=== PATIENT | female | born 1995 | race Caucasian/White ===

== ENCOUNTER 2019-05-24 10:30 | Outpatient (RCR) | payer OTHER, SELFPAY ==
--- NOTE | 2019-04-25 13:45 | PT.OPPOC ---
Current Diagnoses Dizziness and giddiness (04/25/19) Provider Visit Care Team Role Provider Type OSIEL Monk Primary Care Provider Non-Staff Specialty: Family Practice Address: [address] [facility], [place], [address] Fax: Email: David Fuentes MD Attending Provider Physician Specialty: Ear, Nose, Throat Address: [address] [place] [address], [id number] Email: Plan Of Care PT-OP-T Assessment and Plan Start: 04/25/19 14:49 Freq: Status: Active Protocol: Document 04/25/19 13:45 DLM (Rec: 04/25/19 17:22 DLM [id number]) Physical Therapy Assessment Rehab Potential Rehabilitation Potential Good Evaluation Complexity Number of Personal Factors/Comorbidities 1-2 Number of Body Systems Impaired 3 Clinical Presentation at Evaluation Evolving Impairments Impairments Balance Vestibular Goals Two Impairment Decreased balance Short Term Goal (STG) Resolve right drift during balance testing STG Duration 4 weeks Nursing Home Goal (LTG) Resolve losses of balance during functional mobility and normal tasks LTG Duration 10 weeks One Impairment Dizziness Short Term Goal (STG) Resolve dizziness when looking up STG Duration 4 weeks Manager Goal (LTG) Resolve dizziness with normal activities LTG Duration 10 weeks Assessment Summary Assessment Brianne presents with mild dizziness that could only be reproduced during cantor pike testing today with left stronger than right. Unable to see nystagmus during the cantor pike test. On the Dizziness Questionnaire she is positive on 4 out of 5 items that predict BPPV. Noted right drift on high level balance testing. She otherwise shows good balance reactions. Her dizziness has a pattern of being intermittent so will continue to assess each visit for its variability. Clinical testing suggest a mild posterior canal BPPV but the presentation is not classic. Physical Therapy Plan Frequency and Duration Frequency of Treatment 1x/Week Duration of Treatment 10 weeks Plan of Care Start Date 04/25/19 Plan of Care End Date 07/04/19 Therapeutic Interventions Therapeutic Interventions Balance Training Canalithic Repositioning Home Exercise Program Neuromuscular Re-education Patient/Caregiver Education Self-Care/Home Management Vestibular Rehabilitation Next Visit Focus/Plan Next Note Type Treatment Note Next Visit Plan pt not scheduled again until due to being out of town on vacation next week, re-test cantor pike, start balance retraining Plan of Care Dates Plan of Care Start Date 04/25/19 Plan of Care End Date 07/04/19 Please Sign and Return: I have reviewed this Plan of Care and certify that the skilled therapy services above are required to meet the patient?s needs. Physician Signature Date
--- NOTE | 2019-04-25 13:45 | PT.OIE ---
Current Diagnoses Dizziness and giddiness (04/25/19) Past Medical History (Last Updated 04/25/19 @ 14:50 by Maira Mercado, PT) Headache (Acute) Provider Visit Care Team Role Provider Type OSIEL Monk Primary Care Provider Non-Staff Specialty: Family Practice Address: [address] [address], [place], [address] Fax: Email: David Fuentes MD Attending Provider Physician Specialty: Ear, Nose, Throat Address: [address] [place] [address], [id number] Email: Physical Therapy Initial Evaluation PT-OP-A Visit Information Start: 04/25/19 14:49 Freq: Status: Active Protocol: Document 04/25/19 13:45 DLM (Rec: 04/25/19 17:22 DL [id number]) Out-Patient Physical Therapy Visit Information Visit Information Visit Type Initial Evaluation Visit Start Time 13:55 Visit Stop Time 14:40 Total Visit Minutes 45 Visit Number 1 Number of CHEMICAL RESEARCH TECHNICIAN Visits 0 Evaluation Information Evaluation Date 04/25/19 PT-OP-B Current Condition Start: 04/25/19 14:49 Freq: Status: Active Protocol: Document 04/25/19 13:45 DLM (Rec: 04/25/19 17:22 DL [id number]) Current Condition History of Current Condition Onset Date 1.5 years ago Current Complaints dizziness History of Current Condition About 1.5 years ago dizziness started after doing yoga class . She stopped taking the yoga class at that time. She reports intermittent episodes of dizziness since that time. In Aug she noted she was getting dizzy more often. Looking up is the most likely to make her dizzy (worse when standing). She has had a couple of losses of balance with the last one being to the right but did not fall. She gets dizzy during yoga in downward dog so she tries to avoid it. When she gets dizzy she tries to sit down and it will go away. She has difficulty describing the dizziness. It is not a spinning sensation. She feels like she is outside of herself and she feels like she is moving. She has been questioned if she is depressed or dehydrated when she is dizzy and she does not belief this is the case. Her dizziness when provoked resolves quickly with rest breaks. Prior Treatments and Tests ENT testing negative Treatment Goals Patient/Caregiver Goals get rid of the dizziness Prior Functional Status Baseline Function- ADL's Independent Baseline Function- Mobility Independent Baseline Function- Gait Independent Baseline Function- Work/School works at the [employer] on the [employer] Baseline Function- Recreation/Hobbies yoga, rock climbing/bouldering , hiking Baseline Function- Other she reports she is very active Current Functional Impairments (Reported) Functional Limitations- Mobility/Gait losses of balance but no falls Functional Limitations- Recreation/ avoids positions in yoga in Hobbies attempt to avoid dizziness, intermittent dizziness when looking up when rock climbing, sometimes dizzy during sit- ups Personal Factors Other Personal Factors That May Effect gets motion sick easily Therapy/Recovery especially with video games PT-OP-C Subjective Start: 04/25/19 14:49 Freq: Status: Active Protocol: Document 04/25/19 13:45 DLM (Rec: 04/25/19 17:22 DLM [id number]) Patient Questionnaires ABC- Activity Specific Balance Confidence Scale ABC Score 97% ABC Functional Impairment 1 to <20% Impaired (Score 81- 99) Dizziness Handicap Inventory DHI Score 30 DHI Functional Impairment 20 to 39% Impaired (Score 20- 39) OP-PT Pain Assessment Comments Pain Comments no reports of pain PT-OP-D Balance Start: 04/25/19 14:49 Freq: Status: Active Protocol: Document 04/25/19 13:45 DLM (Rec: 04/25/19 17:22 DLM [id number]) Balance Tests Pineda Balance Test Pineda Balance Test Score 56/56 Pineda Impairment Rating 0% Impaired (Score 56) mCTSIB mCTSIB Position 1 independent mCTSIB Position 2 independent mCTSIB Position 3 independent mCTSIB Position 4 independent Romberg Romberg no losses of balance Single Limb Standing Single Limb- Right greater than 30 sec but more sway than left Single Limb- Left greater than 30 sec Tandem Tandem Standing increased sway with right LE post with eyes closed PT-OP-K Range of Motion Start: 04/25/19 14:49 Freq: Status: Active Protocol: Document 04/25/19 13:45 DLM (Rec: 04/25/19 17:22 DLM [id number]) Cervical Spine Range of Motion Cervical Spine Active Percentage Testing Position Sitting Flexion 100 Extension 100 Rotation Left 80 Rotation Right 90 Lateral Flexion Left 100 Lateral Flexion Right 100 Comments no dizziness PT-OP-O Vestibular Start: 04/25/19 14:49 Freq: Status: Active Protocol: Document 04/25/19 13:45 DLM (Rec: 04/25/19 17:22 [facility] [id number]) Vestibular Assessment Screening Tests Vestibular Artery Screen Positive Visual Testing Smooth Pursuits Horizontal negative Smooth Pursuits Vertical negative Saccades Horizontal negative Saccades Vertical negative Spontaneous Nystagmus Negative Vestibulo-Ocular Reflex (VOR1) Negative Vestibulo-Ocular Reflex (VOR2) Negative Positional Testing [place]-Hallpike Positive Left Positive Right < 60 Seconds Rolling Test Negative Left Negative Right Sidelying Test Negative Left Negative Right Supine to Sit Negative Sit to Supine Negative Cervical Vertigo Test Negative Vestibular Function Tests Fukuda Test speed slow down and pt controlling drift to right, no actual turn Comments Vestibular Comments no changes in hearing, no fullness in ears, when standing with eyes closed she describes feeling like she is falling to left (no losses of balance to left observed) PT-OP-Q Treatments Start: 04/25/19 14:49 Freq: Status: Active Protocol: Document 04/25/19 13:45 DLM (Rec: 04/25/19 17:22 [facility] [id number]) Canalithic Repositioning BPPV Treatment Rangel Affected Canal(s) bilateral treated Reps 2 each Comments symptoms stronger on left PT-OP-T Assessment and Plan Start: 04/25/19 14:49 Freq: Status: Active Protocol: Document 04/25/19 13:45 DLM (Rec: 04/25/19 17:22 [facility] [id number]) Physical Therapy Assessment Rehab Potential Rehabilitation Potential Good Evaluation Complexity Number of Personal Factors/Comorbidities 1-2 Number of Body Systems Impaired 3 Clinical Presentation at Evaluation Evolving Impairments Impairments Balance Vestibular Goals Two Impairment Decreased balance Short Term Goal (STG) Resolve right drift during balance testing STG Duration 4 weeks Flame Annealing Machine Operator Goal (LTG) Resolve losses of balance during functional mobility and normal tasks LTG Duration 10 weeks One Impairment Dizziness Short Term Goal (STG) Resolve dizziness when looking up STG Duration 4 weeks Retirement Goal (LTG) Resolve dizziness with normal activities LTG Duration 10 weeks Assessment Summary Assessment Brianne presents with mild dizziness that could only be reproduced during cantor pike testing today with left stronger than right. Unable to see nystagmus during the cantor pike test. On the Dizziness Questionnaire she is positive on 4 out of 5 items that predict BPPV. Noted right drift on high level balance testing. She otherwise shows good balance reactions. Her dizziness has a pattern of being intermittent so will continue to assess each visit for its variability. Clinical testing suggest a mild posterior canal BPPV but the presentation is not classic. Physical Therapy Plan Frequency and Duration Frequency of Treatment 1x/Week Duration of Treatment 10 weeks Plan of Care Start Date 04/25/19 Plan of Care End Date 07/04/19 Therapeutic Interventions Therapeutic Interventions Balance Training Canalithic Repositioning Home Exercise Program Neuromuscular Re-education Patient/Caregiver Education Self-Care/Home Management Vestibular Rehabilitation Next Visit Focus/Plan Next Note Type Treatment Note Next Visit Plan pt not scheduled again until due to being out of town on vacation next week, re-test cantor pike, start balance retraining
--- NOTE | 2019-05-07 14:30 | PT.OTN ---
Current Diagnoses Dizziness and giddiness (05/07/19) Physical Therapy Treatment Note PT-OP-A Visit Information Start: 04/25/19 14:49 Freq: Status: Active Protocol: Document 04/25/19 13:45 DLM (Rec: 04/25/19 17:22 DL [id number]) Out-Patient Physical Therapy Visit Information Visit Information Visit Type Initial Evaluation Visit Start Time 13:55 Visit Stop Time 14:40 Total Visit Minutes 45 Visit Number 1 Number of GASFITTER Visits 0 Evaluation Information Evaluation Date 04/25/19 PT-OP-B Current Condition Start: 04/25/19 14:49 Freq: Status: Active Protocol: Document 04/25/19 13:45 DLM (Rec: 04/25/19 17:22 DL [id number]) Current Condition History of Current Condition Onset Date 1.5 years ago Current Complaints dizziness History of Current Condition About 1.5 years ago dizziness started after doing yoga class . She stopped taking the yoga class at that time. She reports intermittent episodes of dizziness since that time. In Aug she noted she was getting dizzy more often. Looking up is the most likely to make her dizzy (worse when standing). She has had a couple of losses of balance with the last one being to the right but did not fall. She gets dizzy during yoga in downward dog so she tries to avoid it. When she gets dizzy she tries to sit down and it will go away. She has difficulty describing the dizziness. It is not a spinning sensation. She feels like she is outside of herself and she feels like she is moving. She has been questioned if she is depressed or dehydrated when she is dizzy and she does not belief this is the case. Her dizziness when provoked resolves quickly with rest breaks. Prior Treatments and Tests ENT testing negative Treatment Goals Patient/Caregiver Goals get rid of the dizziness Prior Functional Status Baseline Function- ADL's Independent Baseline Function- Mobility Independent Baseline Function- Gait Independent Baseline Function- Work/School works at the [email or web address] on the [employer] Baseline Function- Recreation/Hobbies yoga, rock climbing/bouldering , hiking Baseline Function- Other she reports she is very active Current Functional Impairments (Reported) Functional Limitations- Mobility/Gait losses of balance but no falls Functional Limitations- Recreation/ avoids positions in yoga in Hobbies attempt to avoid dizziness, intermittent dizziness when looking up when rock climbing, sometimes dizzy during sit- ups Personal Factors Other Personal Factors That May Effect gets motion sick easily Therapy/Recovery especially with video games PT-OP-C Subjective Start: 04/25/19 14:49 Freq: Status: Active Protocol: Document 05/07/19 14:30 DLM (Rec: 05/07/19 16:01 DLM [id number]) OP-PT Subjective Patient Comments Patient Comments She just felt a little off after last visit. She notices she gets dizzy when looking up when she stretches in bed in the morning and she got dizzy when going up hill hiking. She got engaged last week and will be traveling to [place] to get soon. Patient Reported Progress Same PT-OP-D Balance Start: 04/25/19 14:49 Freq: Status: Active Protocol: Document 04/25/19 13:45 DLM (Rec: 04/25/19 17:22 DLM [id number]) Balance Tests Pineda Balance Test Pineda Balance Test Score 56/56 Pineda Impairment Rating 0% Impaired (Score 56) mCTSIB mCTSIB Position 1 independent mCTSIB Position 2 independent mCTSIB Position 3 independent mCTSIB Position 4 independent Romberg Romberg no losses of balance Single Limb Standing Single Limb- Right greater than 30 sec but more sway than left Single Limb- Left greater than 30 sec Tandem Tandem Standing increased sway with right LE post with eyes closed PT-OP-K Range of Motion Start: 04/25/19 14:49 Freq: Status: Active Protocol: Document 04/25/19 13:45 DLM (Rec: 04/25/19 17:22 DLM [id number]) Cervical Spine Range of Motion Cervical Spine Active Percentage Testing Position Sitting Flexion 100 Extension 100 Rotation Left 80 Rotation Right 90 Lateral Flexion Left 100 Lateral Flexion Right 100 Comments no dizziness PT-OP-O Vestibular Start: 04/25/19 14:49 Freq: Status: Active Protocol: Document 05/07/19 14:30 DLM (Rec: 05/07/19 16:01 DLM [id number]) Vestibular Assessment Positional Testing [place]-Hallpike Positive Left Positive Right < 60 Seconds Comments Vestibular Comments mild positive Hutton pike's bilaterally with left more symptomatic than right, Able to reproduce her dizziness in bed with looking up then back done (like morning stretch). She does not have symptoms with only looking up but with the motion of up to down in supine. She slower she moves the less symptoms she has. PT-OP-Q Treatments Start: 04/25/19 14:49 Freq: Status: Active Protocol: Document 05/07/19 14:30 DLM (Rec: 05/07/19 16:01 DL [id number]) Manual Therapy Treatment Other Other Manual Treatments palpation of cervical area shows no significant tightness , mild tenderness right side of C2-3, no reproduction of her dizziness Canalithic Repositioning BPPV Treatment Rangel Affected Canal(s) bilateral treated Reps 2 on right and 3 on left Comments fully supported over pillows, decreased intensity and duration of symptoms but did not fully resolve PT-OP-T Assessment and Plan Start: 04/25/19 14:49 Freq: Status: Active Protocol: Document 05/07/19 14:30 DLM (Rec: 05/07/19 16:01 DL [id number]) Physical Therapy Assessment Goals Two Impairment Decreased balance Short Term Goal (STG) Resolve right drift during balance testing STG Duration 4 weeks Longterm Goal (LTG) Resolve losses of balance during functional mobility and normal tasks LTG Duration 10 weeks One Impairment Dizziness Short Term Goal (STG) Resolve dizziness when looking up STG Duration 4 weeks Longterm Goal (LTG) Resolve dizziness with normal activities LTG Duration 10 weeks Assessment Summary Assessment Her dizziness continues to be mild and the worst with looking up. Bilateral hutton pike tests show mild positive. Symptoms decreased with treatment but did not fully resolve. Physical Therapy Plan Frequency and Duration Frequency of Treatment 1x/Week Duration of Treatment 10 weeks Plan of Care Start Date 04/25/19 Plan of Care End Date 07/04/19 Therapeutic Interventions Therapeutic Interventions Balance Training Canalithic Repositioning Home Exercise Program Neuromuscular Re-education Patient/Caregiver Education Self-Care/Home Management Vestibular Rehabilitation Next Visit Focus/Plan Next Note Type Treatment Note Next Visit Plan re-test hutton pike, balance training
--- NOTE | 2019-05-07 14:30 | PT.OTN ---
Current Diagnoses Dizziness and giddiness (05/07/19) Physical Therapy Treatment Note PT-OP-A Visit Information Start: 04/25/19 14:49 Freq: Status: Active Protocol: Document 05/07/19 14:30 DLM (Rec: 05/07/19 16:02 DLM [id number]) Out-Patient Physical Therapy Visit Information Visit Information Visit Type Treatment Note Visit Start Time 14:30 Visit Stop Time 15:20 Total Visit Minutes 50 Visit Number 2 Number of MANNEQUIN MAKER Visits 0 Evaluation Information Evaluation Date 04/25/19 PT-OP-B Current Condition Start: 04/25/19 14:49 Freq: Status: Active Protocol: Document 04/25/19 13:45 DLM (Rec: 04/25/19 17:22 DLM [id number]) Current Condition History of Current Condition Onset Date 1.5 years ago Current Complaints dizziness History of Current Condition About 1.5 years ago dizziness started after doing yoga class . She stopped taking the yoga class at that time. She reports intermittent episodes of dizziness since that time. In Aug she noted she was getting dizzy more often. Looking up is the most likely to make her dizzy (worse when standing). She has had a couple of losses of balance with the last one being to the right but did not fall. She gets dizzy during yoga in downward dog so she tries to avoid it. When she gets dizzy she tries to sit down and it will go away. She has difficulty describing the dizziness. It is not a spinning sensation. She feels like she is outside of herself and she feels like she is moving. She has been questioned if she is depressed or dehydrated when she is dizzy and she does not belief this is the case. Her dizziness when provoked resolves quickly with rest breaks. Prior Treatments and Tests ENT testing negative Treatment Goals Patient/Caregiver Goals get rid of the dizziness Prior Functional Status Baseline Function- ADL's Independent Baseline Function- Mobility Independent Baseline Function- Gait Independent Baseline Function- Work/School works at the [employer] on the [employer] Baseline Function- Recreation/Hobbies yoga, rock climbing/bouldering , hiking Baseline Function- Other she reports she is very active Current Functional Impairments (Reported) Functional Limitations- Mobility/Gait losses of balance but no falls Functional Limitations- Recreation/ avoids positions in yoga in Hobbies attempt to avoid dizziness, intermittent dizziness when looking up when rock climbing, sometimes dizzy during sit- ups Personal Factors Other Personal Factors That May Effect gets motion sick easily Therapy/Recovery especially with video games PT-OP-C Subjective Start: 04/25/19 14:49 Freq: Status: Active Protocol: Document 05/07/19 14:30 DLM (Rec: 05/07/19 16:01 DLM [id number]) OP-PT Subjective Patient Comments Patient Comments She just felt a little off after last visit. She notices she gets dizzy when looking up when she stretches in bed in the morning and she got dizzy when going up hill hiking. She got engaged last week and will be traveling to [place] to get soon. Patient Reported Progress Same PT-OP-D Balance Start: 04/25/19 14:49 Freq: Status: Active Protocol: Document 04/25/19 13:45 DLM (Rec: 04/25/19 17:22 DLM [id number]) Balance Tests Pineda Balance Test Pineda Balance Test Score 56/56 Pineda Impairment Rating 0% Impaired (Score 56) mCTSIB mCTSIB Position 1 independent mCTSIB Position 2 independent mCTSIB Position 3 independent mCTSIB Position 4 independent Romberg Romberg no losses of balance Single Limb Standing Single Limb- Right greater than 30 sec but more sway than left Single Limb- Left greater than 30 sec Tandem Tandem Standing increased sway with right LE post with eyes closed PT-OP-K Range of Motion Start: 04/25/19 14:49 Freq: Status: Active Protocol: Document 04/25/19 13:45 DLM (Rec: 04/25/19 17:22 DLM [id number]) Cervical Spine Range of Motion Cervical Spine Active Percentage Testing Position Sitting Flexion 100 Extension 100 Rotation Left 80 Rotation Right 90 Lateral Flexion Left 100 Lateral Flexion Right 100 Comments no dizziness PT-OP-O Vestibular Start: 04/25/19 14:49 Freq: Status: Active Protocol: Document 05/07/19 14:30 DLM (Rec: 05/07/19 16:01 DLM [id number]) Vestibular Assessment Positional Testing [place]-Hallpike Positive Left Positive Right < 60 Seconds Comments Vestibular Comments mild positive Hutton pike's bilaterally with left more symptomatic than right, Able to reproduce her dizziness in bed with looking up then back done (like morning stretch). She does not have symptoms with only looking up but with the motion of up to down in supine. She slower she moves the less symptoms she has. PT-OP-Q Treatments Start: 04/25/19 14:49 Freq: Status: Active Protocol: Document 05/07/19 14:30 DLM (Rec: 05/07/19 16:01 DL [id number]) Manual Therapy Treatment Other Other Manual Treatments palpation of cervical area shows no significant tightness , mild tenderness right side of C2-3, no reproduction of her dizziness Canalithic Repositioning BPPV Treatment Rangel Affected Canal(s) bilateral treated Reps 2 on right and 3 on left Comments fully supported over pillows, decreased intensity and duration of symptoms but did not fully resolve PT-OP-T Assessment and Plan Start: 04/25/19 14:49 Freq: Status: Active Protocol: Document 05/07/19 14:30 DLM (Rec: 05/07/19 16:01 DL [id number]) Physical Therapy Assessment Goals Two Impairment Decreased balance Short Term Goal (STG) Resolve right drift during balance testing STG Duration 4 weeks Final Finisher Goal (LTG) Resolve losses of balance during functional mobility and normal tasks LTG Duration 10 weeks One Impairment Dizziness Short Term Goal (STG) Resolve dizziness when looking up STG Duration 4 weeks Final Finisher Goal (LTG) Resolve dizziness with normal activities LTG Duration 10 weeks Assessment Summary Assessment Her dizziness continues to be mild and the worst with looking up. Bilateral hutton pike tests show mild positive. Symptoms decreased with treatment but did not fully resolve. Physical Therapy Plan Frequency and Duration Frequency of Treatment 1x/Week Duration of Treatment 10 weeks Plan of Care Start Date 04/25/19 Plan of Care End Date 07/04/19 Therapeutic Interventions Therapeutic Interventions Balance Training Canalithic Repositioning Home Exercise Program Neuromuscular Re-education Patient/Caregiver Education Self-Care/Home Management Vestibular Rehabilitation Next Visit Focus/Plan Next Note Type Treatment Note Next Visit Plan re-test hutton pike, balance training
--- NOTE | 2019-05-24 11:14 | PT.OTN ---
Current Diagnoses Dizziness and giddiness (05/24/19) Physical Therapy Treatment Note PT-OP-A Visit Information Start: 04/25/19 14:49 Freq: Status: Active Protocol: Document 05/24/19 10:30 DCW (Rec: 05/24/19 11:12 DCW [id number]) Out-Patient Physical Therapy Visit Information Visit Information Visit Type Treatment Note Visit Start Time 10:30 Visit Stop Time 11:05 Total Visit Minutes 35 Visit Number 3 Number of E [employer] Visits 0 Evaluation Information Evaluation Date 04/25/19 PT-OP-B Current Condition Start: 04/25/19 14:49 Freq: Status: Active Protocol: Document 04/25/19 13:45 DLM (Rec: 04/25/19 17:22 DLM [id number]) Current Condition History of Current Condition Onset Date 1.5 years ago Current Complaints dizziness History of Current Condition About 1.5 years ago dizziness started after doing yoga class . She stopped taking the yoga class at that time. She reports intermittent episodes of dizziness since that time. In Aug she noted she was getting dizzy more often. Looking up is the most likely to make her dizzy (worse when standing). She has had a couple of losses of balance with the last one being to the right but did not fall. She gets dizzy during yoga in downward dog so she tries to avoid it. When she gets dizzy she tries to sit down and it will go away. She has difficulty describing the dizziness. It is not a spinning sensation. She feels like she is outside of herself and she feels like she is moving. She has been questioned if she is depressed or dehydrated when she is dizzy and she does not belief this is the case. Her dizziness when provoked resolves quickly with rest breaks. Prior Treatments and Tests ENT testing negative Treatment Goals Patient/Caregiver Goals get rid of the dizziness Prior Functional Status Baseline Function- ADL's Independent Baseline Function- Mobility Independent Baseline Function- Gait Independent Baseline Function- Work/School works at the [email or web address] on the [employer] Baseline Function- Recreation/Hobbies yoga, rock climbing/bouldering , hiking Baseline Function- Other she reports she is very active Current Functional Impairments (Reported) Functional Limitations- Mobility/Gait losses of balance but no falls Functional Limitations- Recreation/ avoids positions in yoga in Hobbies attempt to avoid dizziness, intermittent dizziness when looking up when rock climbing, sometimes dizzy during sit- ups Personal Factors Other Personal Factors That May Effect gets motion sick easily Therapy/Recovery especially with video games PT-OP-C Subjective Start: 04/25/19 14:49 Freq: Status: Active Protocol: Document 05/24/19 10:30 DCW (Rec: 05/24/19 11:12 DCW [id number]) OP-PT Subjective Patient Comments Patient Comments Pt reports that she went bouldering yesterday, and didn 't have any symptoms, but still gets symptoms when laying back in bed. PT-OP-D Balance Start: 04/25/19 14:49 Freq: Status: Active Protocol: Document 05/24/19 10:30 DCW (Rec: 05/24/19 11:14 DCW [id number]) Balance Tests CTSIB CTSIB Position 1 Mild Sway CTSIB Position 2 Mild Sway CTSIB Position 3 Mild Sway CTSIB Position 4 Mild Sway CTSIB Position 5 Mild Sway CTSIB Position 6 Mild Sway Single Limb Standing Single Limb- Right 30+ sec Single Limb- Left 30+ sec PT-OP-K Range of Motion Start: 04/25/19 14:49 Freq: Status: Active Protocol: Document 04/25/19 13:45 DLM (Rec: 04/25/19 17:22 DLM [id number]) Cervical Spine Range of Motion Cervical Spine Active Percentage Testing Position Sitting Flexion 100 Extension 100 Rotation Left 80 Rotation Right 90 Lateral Flexion Left 100 Lateral Flexion Right 100 Comments no dizziness PT-OP-O Vestibular Start: 04/25/19 14:49 Freq: Status: Active Protocol: Document 05/24/19 10:30 DCW (Rec: 05/24/19 11:12 DCW [id number]) Vestibular Assessment Visual Testing Gaze Evoked Nystagmus With Fixation Negative Gaze Evoked Nystagmus Without Fixation Negative Heave Test Negative Thrust Head Negative Head Shake Negative Positional Testing Nguyen-Hallpike Positive Left Positive Right < 60 Seconds Rolling Test Negative Left Negative Right Vestibular Function Tests CTSIB Position 1 Mild Sway CTSIB Position 2 Mild Sway CTSIB Position 3 Mild Sway CTSIB Position 4 Mild Sway CTSIB Position 5 Mild Sway CTSIB Position 6 Mild Sway Comments Vestibular Comments No nystagmus with Hallpike, only subjective complaints. PT-OP-Q Treatments Start: 04/25/19 14:49 Freq: Status: Active Protocol: Document 05/24/19 10:30 DCW (Rec: 05/24/19 11:12 DCW [id number]) Gym Equipment Shuttle Balance Red Details Wide MARCO A (EO/EC), SLS, Staggered Stance Canalithic Repositioning BPPV Treatment Rangel Affected Canal(s) Left posterior canal Reps x2 PT-OP-T Assessment and Plan Start: 04/25/19 14:49 Freq: Status: Active Protocol: Document 05/24/19 10:30 DCW (Rec: 05/24/19 11:12 DCW [id number]) Physical Therapy Assessment Goals Two Impairment Decreased balance Short Term Goal (STG) Resolve right drift during balance testing STG Duration 4 weeks Hat Conditioner Goal (LTG) Resolve losses of balance during functional mobility and normal tasks LTG Duration 10 weeks One Impairment Dizziness Short Term Goal (STG) Resolve dizziness when looking up STG Duration 4 weeks Halfway Goal (LTG) Resolve dizziness with normal activities LTG Duration 10 weeks Assessment Summary Assessment Pt symptoms only present during Hallpike, however only subjective complaints, no nystagmus noted even with fixation removed. Pt admits she has had a few episodes recently where she just suddenly loses her balance, even falling over once when she was just standing still. After her balance tests showed no real deficit to explain this fall, would recommend MRI to rule out central causes. Therapist will contact pt's PCP with recommendation. Physical Therapy Plan Frequency and Duration Frequency of Treatment 1x/Week Duration of Treatment 10 weeks Plan of Care Start Date 04/25/19 Plan of Care End Date 07/04/19 Therapeutic Interventions Therapeutic Interventions Balance Training Canalithic Repositioning Home Exercise Program Neuromuscular Re-education Patient/Caregiver Education Self-Care/Home Management Vestibular Rehabilitation Other Referrals/Consults Referrals/Consults Recommended Discuss possible MRI /c pt's PCP Next Visit Focus/Plan Next Note Type Treatment Note Next Visit Plan re-test sakshi orozco balance training
--- NOTE | 2019-11-06 11:50 | PT.OPDS ---
Current Diagnoses Dizziness and giddiness (05/24/19) Visit Care Team Role Provider Type OSIEL Monk Primary Care Provider Non-Staff Specialty: Family Practice Address: [address], [place], [address] Fax: Email: David Fuentes MD Attending Provider Physician Specialty: Ear, Nose, Throat Address: [address] [place] [address], [address] Email: [email or web address] Visit Number Visit Number 3 Discharge Summary PT-OP-B Current Condition Start: 04/25/19 14:49 Freq: Status: Active Protocol: Document 04/25/19 13:45 DLM (Rec: 04/25/19 17:22 DLM [id number]) Current Condition History of Current Condition Onset Date 1.5 years ago Current Complaints dizziness History of Current Condition About 1.5 years ago dizziness started after doing yoga class . She stopped taking the yoga class at that time. She reports intermittent episodes of dizziness since that time. In Aug she noted she was getting dizzy more often. Looking up is the most likely to make her dizzy (worse when standing). She has had a couple of losses of balance with the last one being to the right but did not fall. She gets dizzy during yoga in downward dog so she tries to avoid it. When she gets dizzy she tries to sit down and it will go away. She has difficulty describing the dizziness. It is not a spinning sensation. She feels like she is outside of herself and she feels like she is moving. She has been questioned if she is depressed or dehydrated when she is dizzy and she does not belief this is the case. Her dizziness when provoked resolves quickly with rest breaks. Prior Treatments and Tests ENT testing negative Treatment Goals Patient/Caregiver Goals get rid of the dizziness Prior Functional Status Baseline Function- ADL's Independent Baseline Function- Mobility Independent Baseline Function- Gait Independent Baseline Function- Work/School works at the [employer] on the [employer] Baseline Function- Recreation/Hobbies yoga, rock climbing/bouldering , hiking Baseline Function- Other she reports she is very active Current Functional Impairments (Reported) Functional Limitations- Mobility/Gait losses of balance but no falls Functional Limitations- Recreation/ avoids positions in yoga in Hobbies attempt to avoid dizziness, intermittent dizziness when looking up when rock climbing, sometimes dizzy during sit- ups Personal Factors Other Personal Factors That May Effect gets motion sick easily Therapy/Recovery especially with video games PT-OP-C Subjective Start: 04/25/19 14:49 Freq: Status: Active Protocol: Document 05/24/19 10:30 DCW (Rec: 05/24/19 11:12 DCW [id number]) OP-PT Subjective Patient Comments Patient Comments Pt reports that she went bouldering yesterday, and didn 't have any symptoms, but still gets symptoms when laying back in bed. PT-OP-D Balance Start: 04/25/19 14:49 Freq: Status: Active Protocol: Document 05/24/19 10:30 DCW (Rec: 05/24/19 11:14 DCW [id number]) Balance Tests CTSIB CTSIB Position 1 Mild Sway CTSIB Position 2 Mild Sway CTSIB Position 3 Mild Sway CTSIB Position 4 Mild Sway CTSIB Position 5 Mild Sway CTSIB Position 6 Mild Sway Single Limb Standing Single Limb- Right 30+ sec Single Limb- Left 30+ sec PT-OP-K Range of Motion Start: 04/25/19 14:49 Freq: Status: Active Protocol: Document 04/25/19 13:45 DLM (Rec: 04/25/19 17:22 DLM [id number]) Cervical Spine Range of Motion Cervical Spine Active Percentage Testing Position Sitting Flexion 100 Extension 100 Rotation Left 80 Rotation Right 90 Lateral Flexion Left 100 Lateral Flexion Right 100 Comments no dizziness PT-OP-O Vestibular Start: 04/25/19 14:49 Freq: Status: Active Protocol: Document 05/24/19 10:30 DCW (Rec: 05/24/19 11:12 DCW [id number]) Vestibular Assessment Visual Testing Gaze Evoked Nystagmus With Fixation Negative Gaze Evoked Nystagmus Without Fixation Negative Heave Test Negative Thrust Head Negative Head Shake Negative Positional Testing [place]-Hallpike Positive Left,Positive Right,< 60 Seconds Rolling Test Negative Left,Negative Right Vestibular Function Tests CTSIB Position 1 Mild Sway CTSIB Position 2 Mild Sway CTSIB Position 3 Mild Sway CTSIB Position 4 Mild Sway CTSIB Position 5 Mild Sway CTSIB Position 6 Mild Sway Comments Vestibular Comments No nystagmus with Hallpike, only subjective complaints. PT-OP-T Assessment and Plan Start: 04/25/19 14:49 Freq: Status: Active Protocol: Document 11/06/19 11:48 DCW (Rec: 11/06/19 11:50 DCW [id number]) Physical Therapy Assessment Goals Two Impairment Decreased balance Short Term Goal (STG) Resolve right drift during balance testing STG Duration 4 weeks Shelter Goal (LTG) Resolve losses of balance during functional mobility and normal tasks LTG Duration 10 weeks One Impairment Dizziness Short Term Goal (STG) Resolve dizziness when looking up STG Duration 4 weeks Charging Board Operator Goal (LTG) Resolve dizziness with normal activities LTG Duration 10 weeks Assessment Summary Assessment Pt has not scheduled any follow up visits following her MRI, has not been seen in more than 5 months, will be discharged from skilled therapy at this time. Pt will require a new referral in order to return to skilled therapy in the future. Physical Therapy Plan Frequency and Duration Frequency of Treatment 1x/Week Duration of Treatment 10 weeks Plan of Care Start Date 04/25/19 Plan of Care End Date 07/04/19 Therapeutic Interventions Therapeutic Interventions Balance Training,Canalithic Repositioning,Home Exercise Program,Neuromuscular Re- education,Patient/Caregiver Education,Self-Care/Home Management,Vestibular Rehabilitation Discharge Physical Therapy Discharge Reasons No Longer Attending PT Next Visit Focus/Plan Next Note Type Discharge Summary
== END 2019-11-23 11:47 ==
LOC: PHYS 10:30
PROVIDERS: PCP Nurse Practitioner Family; Visit Provider Otolaryngology
DX: R42 Dizziness and giddiness (principal)
CPT/HCPCS: 97112; 97162

== ENCOUNTER 2019-06-18 18:00 | Emergency (ER) | payer OTHER, SELFPAY ==
[2019-06-18 18:06] VITALS: BP 129/79; PULSE 81; RESP 18; O2SAT 94; BMI 23.9
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
[2019-06-18] MEDS: IBUPROFEN 400 MG TABLET PO (18:30)
[2019-06-18] MEDS: ACETAMINOPHEN 325 MG TABLET 650 MG PO (18:30)
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
[2019-06-18 19:48] VITALS: BP 108/56; PULSE 72; RESP 16; TEMP 36.9; O2SAT 100
== END 2019-06-18 20:01 | disposition home or self-care (01) ==
PROVIDERS: Emergency Provider Nurse Practitioner Family; PCP Nurse Practitioner Family
DX: M54.2 Cervicalgia (principal); S27.321A Contusion of lung, unilateral, initial encounter; V43.52XA Car driver injured in collision with other type car in traffic accident, initial encounter
CPT/HCPCS: 71046; 99283

== ENCOUNTER → 2019-07-23 18:36 | Outpatient (CLI) | payer OTHER, SELFPAY ==
--- NOTE | 2019-07-23 18:40 | DI.MRI.S_ITS ---
PROCEDURE: MR HEAD/BRAIN WO CON INDICATIONS: DIZZINESS TECHNIQUE: Noncontrast axial T1 spin echo, axial T2 fast spin echo, sagittal and axial FLAIR, coronal T2 fast spin echo, axial gradient echo, axial diffusion and ADC through the brain. COMPARISON: None. FINDINGS: Image quality: Excellent. CSF Spaces: Basal cisterns are patent. No extra-axial fluid collections. Ventricles are normal in size and shape. Brain: No intracranial masses or hemorrhage. Lynch/white matter interface is normal. Brainstem appears normal. Diffusion-weighted images demonstrate no acute ischemic insult. No chronic ischemic insults. Normal intravascular flow voids are present. Skull and face: Calvarium has normal marrow signal. Orbits appear normal. Sinuses: Sinuses and mastoids are clear. IMPRESSION: Negative brain MRI. Normal brain parenchyma. No evidence of acute stroke, hemorrhage, or mass. Dictated by: Dk Lee M.D. on 07/23/2019 at 20:56 Approved by: Dk Lee M.D. on 07/23/2019 at 20:58
== END ==
PROVIDERS: PCP Nurse Practitioner Family; Visit Provider Nurse Practitioner Family
DX: R42 Dizziness and giddiness (principal)
CPT/HCPCS: 70551

== ENCOUNTER 2019-12-04 22:49 | Emergency (ER) | payer OTHER, SELFPAY ==
[2019-12-04 22:56] VITALS: BP 122/78; PULSE 69; RESP 16; TEMP 36.4; O2SAT 97
--- NOTE | 2019-12-04 23:05 | ED.URI ---
HPI - URI/Sore Throat General Chief Complaint: Upper Respiratory Symptoms Stated Complaint: states sinus infection Time Seen by Provider: 12/04/19 22:56 Source: patient Mode of arrival: Ambulatory Limitations: no limitations History of Present Illness HPI Narrative: 24-year-old otherwise healthy female here for evaluation of approximately 48 hours of sinus congestion, bilateral ear pain with left being greater than right, no cough. Sore throat. Has not tried anything for symptoms prior to arrival. Related Data Previous Rx's Medication Instructions Recorded cyclobenzaprine 5 mg PO BID PRN #10 tab MDD You 06/18/19 can take upto 2 tabs Allergies Allergy/AdvReac Type Severity Reaction Status Date / Time No Known Drug Allergies Allergy Verified 06/18/19 18:11 Review of Systems Constitutional Constitutional: Denies fever(s) and Denies headache(s) ENT Ears, Nose, Mouth, and Throat: Denies ear discharge, Reports otalgia, Denies headache(s), Denies disequilibrium, Denies tinnitus, Denies sinus pain, Reports sinus pressure and Reports sore throat Cardiovascular Cardiovascular: Denies chest pain and Denies dyspnea Respiratory Respiratory: Denies cough and Denies dyspnea Gastrointestinal Gastrointestinal: Denies abdominal pain and Denies nausea Integumentary/Breasts Skin/Breast: Denies rash Neurologic Neurologic: Denies behavioral changes, Denies headache(s) and Denies disequilibrium Psychiatric Psychiatric: Denies behavioral changes Hematologic/Lymphatic Hematologic/Lymphatic: Denies easy bleeding and Denies easy bruising Patient History Medical History Headache (Acute) Social History Smoking Status: Never smoker Smoking Status: Never smoker alcohol intake frequency: 0-2 drinks per day Substance Use Type: does not use Exam Initial Vital Signs Initial Vital Signs: Vital Signs Temperature 97.6 F 12/04/19 22:56 Pulse Rate 69 12/04/19 22:56 Respiratory Rate 16 12/04/19 22:56 Blood Pressure 122/78 12/04/19 22:56 Pulse Oximetry 97 12/04/19 22:56 Const General: cooperative and comfortable Orientation: alert, awake and oriented x3 HENMT Head: normal to inspection and normocephalic Ears: EAC's normal and TM abnormal bulging bilaterally and dull bilaterally; not erythematous Mouth: oral mucosae normal Throat: posterior oropharynx normal Neck Lymphatic: No lymphadenopathy Resp Effort & Inspection: normal respiratory effort Auscultation: clear to auscultation bilaterally Cardio Rate: regular rate Rhythm: regular rhythm Skin Lesions: no lesions Rashes: no rashes Neuro General: alert and awake Speech: speech normal Extrem General: normal to inspection and capillary refill normal Course Vital Signs Vital signs: Vital Signs - 8 hr 12/04/19 22:56 Temperature 97.6 F Pulse Rate 69 Respiratory Rate 16 Blood Pressure 122/78 Pulse Oximetry 97 MDM - URI/Sore Throat MDM Narrative Medical decision making narrative: Nontoxic appearing. No indication for antibiotics. Has a URI. Discussed the use of [id number] medications. 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 Discussed return precautions and follow-up instructions. She expressed understanding and agreement with plan. Discharge Plan Departure Patient Disposition: Home Clinical Impression: Upper respiratory infection Qualifiers: URI type: unspecified URI Qualified Code(s): J06.9 - Acute upper respiratory infection, unspecified Instructions: DI for Viral Upper Respiratory Infection -- Adult Activity Restrictions/Additional Instructions: Recommend that you use a antihistamine such as Claritin or Angelina or Zyrtec. You can buy these [id number]. Also nasal spray to include either Flonase or Nasonex. Use these medications as directed and like we discussed. You could also purchased Afrin which may be helpful. Contact your medical department for follow-up. Return to the emergency department for any new symptoms Prescriptions: No Action cyclobenzaprine 5 mg tablet 5 mg PO BID MDD You can take upto 2 tabs PRN (Reason: muscle spasm) Qty: 10 RF: 0 Referrals: Aubrie Posada ARNP [Primary Care Provider] - Stand Alone Forms: Work Release Note
== END 2019-12-04 23:13 | disposition home or self-care (01) ==
PROVIDERS: Emergency Provider Emergency Medicine; PCP Nurse Practitioner Family
DX: J06.9 Acute upper respiratory infection, unspecified (principal)
CPT/HCPCS: 99281

== ENCOUNTER 2020-09-07 12:17 | Emergency (ER) | payer OTHER, SELFPAY ==
[2020-09-07] VITALS (12 sets, daily range): BP systolic 108–122; BP diastolic 62–72; PULSE 83–100; RESP 16–18; TEMP 37; O2SAT 95–100; BMI 22.4
--- NOTE | 2020-09-07 12:57 | ED_ITS ---
HPI - General Chief complaint: Urogenital-Female Stated complaint: post miscarriage, cramping every 5 mins, bleeding Time Seen by Provider: 09/07/20 12:35 Source: patient Mode of arrival: Ambulatory Limitations: no limitations History of Present Illness HPI Narrative: This is a 25-year-old female who comes emergency department with complaint of vaginal bleeding status post miscarriage. Patient states she had her 9.5 week appointment they did not see heartbeat, she had a follow-up ultrasound appointment and they could not see heartbeat again and she was told she was miscarrying. She took an oral medication to help evacuate the products from her miscarriage. She took this on Tuesday, she had some cramping quite a bit of bleeding she states the bleeding has tapered until yesterday and then increased a little bit today. She states today she started having pretty severe cramping that was much stronger than during the week. She has not had any fevers. She has had some nausea. She has not had any vomiting. She denies any chest pain. She does feel short of breath starting around . Patient denies any frequency, dysuria urgency. She has had normal bowel movements although she states that today when she had a bowel movement was quite painful in the front her abdomen. She states she is otherwise healthy. She states she has completed the oral medication she thinks it is misoprostol but she is unsure. She follows with OBGYN at the [facility] and believes that Dr. Lang is her physician. She states she had ultrasound and had a Pap smear but did not have any other interventions and did not have a D&C. Patient : Yes Related Data Previous Rx's Medication Instructions Recorded cyclobenzaprine 5 mg PO BID PRN #10 tab MDD You 06/18/19 can take upto 2 tabs hydrocodone-acetaminophen 2 tab PO Q4-6H PRN #10 tab 09/07/20 hydrocodone-acetaminophen 2 tab PO Q4-6H PRN #10 tab 09/07/20 hydrocodone-acetaminophen 2 tab PO Q4-6H PRN #10 tab 09/07/20 misoprostol [Cytotec] See Rx Instructions .ROUTE 09/07/20 .COMPLEX #8 tab Allergies Allergy/AdvReac Type Severity Reaction Status Date / Time No Known Drug Allergies Allergy Verified 06/18/19 18:11 Review of Systems Review of Systems ROS Unobtainable: All systems reviewed & are unremarkable except as noted in HPI and below PMFSH - Past Medical History Medical history: Reports no medical history Surgical history: Reports no surgical history Patient : Yes Exam Narrative Exam Narrative: GENERAL: Alert and oriented x three, well-nourished, well- appearing female in mild distress. During our evaluation she began to have cramping and does look quite uncomfortable during those episodes. HEENT: Head normocephalic, atraumatic, EOMI, pupils reactive, face symmetric, moist mucous membranes NECK: Supple, full range of motion CARDIOVASCULAR: Regular rate and rhythm without murmurs, rubs or gallops. RESPIRATORY: Breath sounds equal bilaterally, no wheezes rales or rhonchi. ABDOMEN: Soft, moderate generalized tenderness lower abdomen, Normoactive bowel sounds all 4 quadrants. No guarding or rebound, rigidity, no mass : No CVA tenderness. EXTREMITIES: Normal range of motion, no clubbing or edema. Neurovascularly intact NEUROLOGICAL: Cranial nerves II through XII grossly intact. Moving all extremities SKIN: Warm, dry, no petechiae, no rashes or lesions. Initial Vital Signs Initial Vital Signs: Vital Signs Pulse Rate 90 09/07/20 12:24 Blood Pressure 122/72 09/07/20 12:24 Pulse Oximetry 100 09/07/20 12:24 Course Orders Ordered: ED Orders 09/07/20 13:06 Urinalysis and Microscopic Stat 09/07/20 13:25 ABO RH Type Stat Complete Blood Count AUTO DIFF Stat Comprehensive Metabolic Panel Stat HCG Quantitative /Beta subunit Stat Partial Thromboplastin Time Stat Prothrombin Time INR Stat 09/07/20 13:43 US pelvic complete Stat Discontinued Medications Ketorolac Tromethamine (Toradol) 30 mg IV NOW ONE Stop: 09/07/20 13:42 Last Admin: 09/07/20 13:47 Dose: 30 mg Documented by: LETI Reevaluation(s) Reevaluation #1: Discussed lab findings and Prelim middle ultrasound findings. Waiting for final report before contacting OBGYN but we will wait for final report. Patient's vitals, labs appropriate the department. She does continue to have some bleeding. Pain is improving with Toradol. Time: 14:05 Reevaluation #2: Recheck, discussed that Dr. De Anda is coming in to see the patient. Time: 15:15 Consultations Consultation #1: Discussed findings and US findings. Dr. De Anda will come in to see the patient. Time: 16:13 Vital Signs Vital signs: Vital Signs - 8 hr 09/07/20 12:24 09/07/20 12:25 09/07/20 12:29 Temperature 98.6 F Pulse Rate 90 90 92 H Respiratory Rate 18 16 Blood Pressure 122/72 122/72 122/72 Pulse Oximetry 100 100 100 09/07/20 12:30 09/07/20 13:10 09/07/20 13:30 Temperature Pulse Rate 86 85 Respiratory Rate Blood Pressure Pulse Oximetry 100 95 97 09/07/20 13:42 09/07/20 13:43 09/07/20 13:53 Temperature Pulse Rate 87 88 83 Respiratory Rate 18 Blood Pressure 118/66 118/66 119/63 Pulse Oximetry 96 96 97 09/07/20 14:00 09/07/20 15:00 09/07/20 15:30 Temperature Pulse Rate 100 H 87 Respiratory Rate 16 Blood Pressure 115/62 118/64 108/68 Pulse Oximetry 96 97 96 MDM - OB/Uterine Contractions Lab Data Attestation: I reviewed the patient's lab results. Result diagrams: 09/07/20 13:25 09/07/20 13:25 Labs: Lab Results 09/07/20 09/07/20 09/07/20 Range/Units 13:06 13:25 13:25 WBC (4.5-11.0) X10^3/uL RBC (4.0-5.2) X10^6/uL Hgb (12.0-16.0) g/dL Hct (36-46) % MCV (80-100) fL MCH (26-34) PG MCHC (30-36) % RDW (11.6-14.8) % Plt Count (150-400) X10^3/uL Neut % (Auto) (50-75) % Lymph % (Auto) (25-40) % [place] % (Auto) (3-14) % Eos % (Auto) (2-4) % Baso % (Auto) (0-2) % Neut # (Auto) (8159-8799) /uL Lymph # (Auto) (5887-1028) /uL [place] # (Auto) (0-900) /uL Eos # (Auto) (0-450) /uL Baso # (Auto) (0-100) /uL PT 10.6 (10.1-12.7) SECONDS INR 0.9 (0.9-1.3) APTT 31 (26.4-36.2) SECONDS Sodium (137-145) mmol/L Potassium (3.4-5.1) mmol/L Chloride (98-107) mmol/L Carbon Dioxide (22-32) mmol/L BUN (7-17) mg/dL Creatinine (0.52-1.04) mg/dL Estimated GFR (>60) mL/min BUN/Creatinine Ratio (6-22) Glucose (70-100) mg/dL Calcium (8.4-10.2) mg/dL Total Bilirubin (0.2-1.3) mg/dL AST (14-36) IU/L ALT (<35) IU/L Alkaline Phosphatase (38-126) U/L Total Protein (6.3-8.2) g/dL Albumin (3.5-5.0) g/dL Globulin (1.7-4.1) g/dL Albumin/Globulin Ratio (1.0-2.8) HCG, Quant 1149.9 mIU/mL Urine Color [place] Urine Appearance Sl cloudy Urine pH 8.0 (4.5-8.0) Ur Specific [place] 1.015 (1.000-1.035) Urine Protein 1+ H (Negative) Urine Glucose (UA) Negative (Negative) g/dL Urine Ketones Negative (NEGATIVE) Urine Occult Blood 3+ H (Negative) Urine Nitrate Negative (Negative) Urine Bilirubin Negative (NEGATIVE) Urine Urobilinogen 0.2 (0.2) E.U./dL Ur Leukocyte Esterase 1+ H (NEGATIVE) Urine RBC 5-10/hpf H (0-5/HPF) Urine WBC 10-30/hpf H (0-5/HPF) Ur Squamous Epith Cells 5-10 /hpf H (0-5/HPF) Urine Bacteria Many (>30) H (None) Ur Culture Indicated? Cult not indicated Micro UA Comment Blood Type 09/07/20 09/07/20 09/07/20 Range/Units 13:25 13:25 13:25 WBC 6.1 (4.5-11.0) X10^3/uL RBC 3.88 L (4.0-5.2) X10^6/uL Hgb 12.0 (12.0-16.0) g/dL Hct 35.0 L (36-46) % MCV 90.2 (80-100) fL MCH 31.0 (26-34) PG MCHC 34.3 (30-36) % RDW 13.3 (11.6-14.8) % Plt Count 198 (150-400) X10^3/uL Neut % (Auto) 79.0 H (50-75) % Lymph % (Auto) 12.8 L (25-40) % [place] % (Auto) 7.1 (3-14) % Eos % (Auto) 0.7 L (2-4) % Baso % (Auto) 0.4 (0-2) % Neut # (Auto) 4800 (5165-1484) /uL Lymph # (Auto) 800 L (3871-3461) /uL [place] # (Auto) 400 (0-900) /uL Eos # (Auto) 0 (0-450) /uL Baso # (Auto) 0 (0-100) /uL PT (10.1-12.7) SECONDS INR (0.9-1.3) APTT (26.4-36.2) SECONDS Sodium 138 (137-145) mmol/L Potassium 3.8 (3.4-5.1) mmol/L Chloride 105 (98-107) mmol/L Carbon Dioxide 28 (22-32) mmol/L BUN 7 (7-17) mg/dL Creatinine 0.58 (0.52-1.04) mg/dL Estimated GFR > 60.0 (>60) mL/min BUN/Creatinine Ratio 12.1 (6-22) Glucose 94 (70-100) mg/dL Calcium 8.8 (8.4-10.2) mg/dL Total Bilirubin 0.6 (0.2-1.3) mg/dL AST 25 (14-36) IU/L ALT 14 (<35) IU/L Alkaline Phosphatase 69 (38-126) U/L Total Protein 7.2 (6.3-8.2) g/dL Albumin 4.1 (3.5-5.0) g/dL Globulin 3.1 (1.7-4.1) g/dL Albumin/Globulin Ratio 1.3 (1.0-2.8) HCG, Quant mIU/mL Urine Color Urine Appearance Urine pH (4.5-8.0) Ur Specific [place] (1.000-1.035) Urine Protein (Negative) Urine Glucose (UA) (Negative) g/dL Urine Ketones (NEGATIVE) Urine Occult Blood (Negative) Urine Nitrate (Negative) Urine Bilirubin (NEGATIVE) Urine Urobilinogen (0.2) E.U./dL Ur Leukocyte Esterase (NEGATIVE) Urine RBC (0-5/HPF) Urine WBC (0-5/HPF) Ur Squamous Epith Cells (0-5/HPF) Urine Bacteria (None) Ur Culture Indicated? Micro UA Comment Blood Type O Positive Imaging Data US - OB: Radiologist's Impression: [address] [address] Ultrasound Report Signed Patient: Brianne Avila MMR#: [id number] : 1995Acct:[id number] Age/Sex: 25 / FDate of Service: 09/07/20 Loc: ED Accession Number: [id number] Procedure: US pelvic complete Ordering Provider: Britt Puri D.O. PROCEDURE: US PELVIC COMPLETE INDICATIONS: Spontaneous 10 weeks prior; increased cramping and bleeding TECHNIQUE: Real-time scanning was performed of the pelvic organs, with image documentation. Additional endovaginal scanning was necessary due to incomplete visualization of the adnexal and endometrial structures by transabdominal scanning. COMPARISON: None. FINDINGS: Transabdominal scanning: Limited scanning through the kidneys demonstrates no hydronephrosis. No pathologic free abdominal or pelvic fluid. Endovaginal scanning: Uterus: The uterus measures 10.0 x 4.9 x 7.2 cm. The endometrium measures 2.0 cm in combined thickness. Within the fundus, there is a hypoechoic soft tissue mass within the ventral aspect of the endometrium measuring approximately 2.7 x 1.4 x 2.5 cm. There is hyperemic internal vascularity on color Doppler interrogation. Ovaries: The right ovary measures 3.1 x 2.0 x 3.2 cm. The left ovary was not visualized. No adnexal masses identified. IMPRESSION: 1. Hypervascular hypoechoic mass within the fundal endometrium suspicious for retained products of conception given clinical history. The differential includes an endometrial polyp or neoplasm although these are considered less likely. Dictated by: Pasha Mann M.D. on 09/07/2020 at 13:48 Approved by: Pasha Mann M.D. on 09/07/2020 at 13:52 MDM Narrative Medical decision making narrative: This is a 25-year-old female who was found to have be and not have a heartbeat on her most recent OBGYN visits. Patient was given oral medication to induce evacuation of the products. She states she had quite a bit of bleeding initially it is decreased but she is continuing to have some increased today and she has had a rapid increase in cramping and discomfort today and comparison to a cramping she had or Tuesday. She started the medication on Tuesday. She was approximately 9 and half weeks by ultrasound. Pre level ultrasound shows a 3 cm vascular retained product in the uterus. Patient's labs otherwise are appropriate she does not appear to be anemic. Vitals are stable the department. She was treated with Toradol and found to be improved with some moderate pain still. Currently deferring any additional pain meds. Discharge Plan Departure Patient Disposition: Home Clinical Impression: Retained products of conception Discharge Date/Time: 09/07/20 16:01 Activity Restrictions/Additional Instructions: Follow up with Dr. 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 De Anda. Take medication as prescribed by Dr. De Anda. Return to the ER for rapidly worsening symptoms, severe pain, rapidly worsening bleeding, lightheadedness, passing out, persistent vomiting, difficulty with urination or other new or concerning symptoms. Prescriptions: New misoprostol [Cytotec] 200 mcg tablet See Rx Instructions .ROUTE .COMPLEX Qty: 8 RF: 0 hydrocodone-acetaminophen 5-325 mg tablet 2 tab PO Q4-6H PRN (Reason: pain) Qty: 10 RF: 0 hydrocodone-acetaminophen 5-325 mg tablet 2 tab PO Q4-6H PRN (Reason: pain) Qty: 10 RF: 0 hydrocodone-acetaminophen 5-325 mg tablet 2 tab PO Q4-6H PRN (Reason: pain) Qty: 10 RF: 0 No Action cyclobenzaprine 5 mg tablet 5 mg PO BID MDD You can take upto 2 tabs PRN (Reason: muscle spasm) Qty: 10 RF: 0 Referrals: Wendy De Anda MD [Physician] - Aubrie Posada ARNP [Primary Care Provider] -
[2020-09-07 13:24] LABS: Appearance Urine UA SL CLOUDY; Bilirubin Urine UA NEGATIVE (NEGATIVE); Glucose Urine UA NEGATIVE (Negative); Ketones Urine UA NEGATIVE (NEGATIVE); Leukocyte Esterase Urine UA 1+ (NEGATIVE); Nitrite Urine UA NEGATIVE (Negative); Occult Blood Urine UA 3+ (Negative); Protein Urine UA 1+ (Negative); Specific Gravity Urine UA 1.015 (1.000-1.035); Urobilinogen Urine UA 0.2 E.U./dL (0.2)
[2020-09-07 13:28] LABS: Color Urine UA PINK
[2020-09-07 13:37] LABS: RBC Urine 5-10/HPF (0-5/HPF); Squamous Epithelial Cell Urine 5-10 /HPF (0-5/HPF); WBC Urine 10-30/HPF (0-5/HPF)
[2020-09-07 13:38] LABS: Bacteria Urine Many (>30); Culture Indicated Urine Cult Not Indicated
[2020-09-07 13:39] LABS: Add Manual Diff / Slide Review NO; Basophils Absolute Auto 0 /uL (0-100); Basophils Percent Auto 0.4 % (0-2); Eosinophils Absolute Auto 0 /uL (0-450); Eosinophils Percent Auto 0.7 % (2-4); Lymphocytes Absolute Auto 800 /uL (1100-4500); Lymphocytes Percent Auto 12.8 % (25-40); Mean Corpuscular HGB Conc 34.3 % (30-36); Mean Corpuscular Volume 90.2 fL (80-100); Monocytes Absolute Auto 400 /uL (0-900); Monocytes Percent Auto 7.1 % (3-14); Neutrophils Absolute Auto 4800 /uL (1500-7000); Platelet Count 198 X10^3/uL (150-400); Red Blood Cell Count 3.88 X10^6/uL (4.0-5.2); Red Cell Distribution Width 13.3 % (11.6-14.8); White Blood Cell Count 6.1 X10^3/uL (4.5-11.0)
--- NOTE | 2020-09-07 13:43 | DI.US.S_ITS ---
PROCEDURE: US PELVIC COMPLETE INDICATIONS: Spontaneous 10 weeks prior; increased cramping and bleeding TECHNIQUE: Real-time scanning was performed of the pelvic organs, with image documentation. Additional endovaginal scanning was necessary due to incomplete visualization of the adnexal and endometrial structures by transabdominal scanning. COMPARISON: None. FINDINGS: Transabdominal scanning: Limited scanning through the kidneys demonstrates no hydronephrosis. No pathologic free abdominal or pelvic fluid. Endovaginal scanning: Uterus: The uterus measures 10.0 x 4.9 x 7.2 cm. The endometrium measures 2.0 cm in combined thickness. Within the fundus, there is a hypoechoic soft tissue mass within the ventral aspect of the endometrium measuring approximately 2.7 x 1.4 x 2.5 cm. There is hyperemic internal vascularity on color Doppler interrogation. Ovaries: The right ovary measures 3.1 x 2.0 x 3.2 cm. The left ovary was not visualized. No adnexal masses identified. IMPRESSION: 1. Hypervascular hypoechoic mass within the fundal endometrium suspicious for retained products of conception given clinical history. The differential includes an endometrial polyp or neoplasm although these are considered less likely. Dictated by: Pasha Mann M.D. on 09/07/2020 at 13:48 Approved by: Pasha Mann M.D. on 09/07/2020 at 13:52
[2020-09-07] MEDS: KETOROLAC 60 MG/2 ML VIAL 30 MG IV (13:47)
[2020-09-07 13:49] LABS: INR 0.9 (0.9-1.3); Prothrombin Time 10.6 SECONDS (10.1-12.7)
[2020-09-07 13:51] LABS: PTT Partial Thromboplastin Tim 31 SECONDS (26.4-36.2)
[2020-09-07 13:53] LABS: Alanine Aminotransferase 14 IU/L (<35); Albumin 4.1 g/dL (3.5-5.0); Albumin Globulin Ratio 1.3 (1.0-2.8); Alkaline Phosphatase 69 U/L (38-126); Aspartate Aminotransferase 25 IU/L (14-36); BUN Creatinine Ratio 12.1 (6-22); Bilirubin Total 0.6 mg/dL (0.2-1.3); Blood Urea Nitrogen 7 mg/dL (7-17); Calcium 8.8 mg/dL (8.4-10.2); Carbon Dioxide 28 mmol/L (22-32); Chloride 105 mmol/L (98-107); Estimated Glomerular Filt Rate > 60.0 mL/min (>60); Globulin 3.1 g/dL (1.7-4.1); Glucose 94 mg/dL (70-100); HEMOLYSIS 24 (0-50); Potassium 3.8 mmol/L (3.4-5.1); Sodium 138 mmol/L (137-145); Total Protein 7.2 g/dL (6.3-8.2)
[2020-09-07 14:09] LABS: HCG Quantitative /Beta subunit 1149.9 mIU/mL
--- NOTE | 2020-09-07 15:48 | PM.CN ---
History of Present Illness Consult details Date Patient Seen: 09/07/20 Time Patient Seen: 15:48 Chief complaint: post miscarriage, cramping every 5 mins, bleeding Reason for consult: Retained products of conception Requesting provider: Britt Puri Narrative: Patient is a 25-year-old who was found to have a missed AB by the OB physician at the [facility]. She was given Cytotec to induce a miscarriage. She use for pills followed by an additional 4 pills 24 hours later. She had significant cramping with passage of a large amount of tissue 5 days ago. Her bleeding and cramping had decreased significantly but she began having increased cramping and bleeding today so presented to the emergency room for evaluation. Patient had an ultrasound performed in the emergency room which showed a less than 3 cm area of probable retained products of conception. Patient's vital signs are stable and she is not anemic. Meds Home Medications and Allergies Home Medications Medication Instructions Recorded Confirmed Type cyclobenzaprine 5 mg PO BID PRN #10 tab MDD You 06/18/19 Rx can take upto 2 tabs hydrocodone-acetaminophen 2 tab PO Q4-6H PRN #10 tab 09/07/20 Rx hydrocodone-acetaminophen 2 tab PO Q4-6H PRN #10 tab 09/07/20 Rx hydrocodone-acetaminophen 2 tab PO Q4-6H PRN #10 tab 09/07/20 Rx misoprostol [Cytotec] See Rx Instructions .ROUTE 09/07/20 Rx .COMPLEX #8 tab Allergies Allergy/AdvReac Type Severity Reaction Status Date / Time No Known Drug Allergies Allergy Verified 06/18/19 18:11 Review of Systems Review of Systems Narrative: Patient denies fevers. She denies nausea or vomiting. She has no dizziness. ROS: Yes All systems reviewed with the patient and are negative except as otherwise documented Exam Vital Signs (past 8 hours): - 09/07/20 12:24 09/07/20 12:25 09/07/20 12:29 Temperature 98.6 F Pulse Rate 90 90 92 H Respiratory Rate 18 16 Blood Pressure 122/72 122/72 122/72 Pulse Oximetry 100 100 100 09/07/20 12:30 09/07/20 13:10 09/07/20 13:30 Temperature Pulse Rate 86 85 Respiratory Rate Blood Pressure Pulse Oximetry 100 95 97 09/07/20 13:42 09/07/20 13:43 09/07/20 13:53 Temperature Pulse Rate 87 88 83 Respiratory Rate 18 Blood Pressure 118/66 118/66 119/63 Pulse Oximetry 96 96 97 09/07/20 14:00 09/07/20 15:00 Temperature Pulse Rate 100 H Respiratory Rate Blood Pressure 115/62 118/64 Pulse Oximetry 96 97 Oxygen Delivery Method Room Air Narrative Exam Narrative: On physical exam the patient's abdomen is soft no palpable organomegaly and minimal lower abdominal tenderness without rebound. Patient is not bleeding heavy. Extremities without edema and nontender. Discussed options with the patient including just waiting to see if she passes the tissue, repeating Cytotec, or proceeding with suction D&C. The suction D&C procedure was discussed with the patient. She would prefer not to proceed with surgery today. She would like to try another round of Cytotec. The prescription was sent to her pharmacy [facility] in [place]. Patient initially declined narcotic pain medicine but agreed it after her urged her to have a small number of narcotics in case the pain became more severe. Discussed the patient should return if she has concerns about bleeding, pain or develops fevers. Otherwise the patient was planning to call her physician at the [facility] base for follow-up this week. Objective Labs Result Diagrams: 09/07/20 13:25 09/07/20 13:25 Labs: Laboratory Results - last 24 hr 09/07/20 09/07/20 09/07/20 13:06 13:25 13:25 WBC RBC Hgb Hct MCV MCH MCHC RDW Plt Count Neut % (Auto) Lymph % (Auto) [place] % (Auto) Eos % (Auto) Baso % (Auto) Neut # (Auto) Lymph # (Auto) [place] # (Auto) Eos # (Auto) Baso # (Auto) PT 10.6 INR 0.9 APTT 31 Sodium Potassium Chloride Carbon Dioxide BUN Creatinine Estimated GFR BUN/Creatinine Ratio Glucose Calcium Total Bilirubin AST ALT Alkaline Phosphatase Total Protein Albumin Globulin Albumin/Globulin Ratio HCG, Quant 1149.9 Urine Color [place] Urine Appearance Sl cloudy Urine pH 8.0 Ur Specific [place] 1.015 Urine Protein 1+ H Urine Glucose (UA) Negative Urine Ketones Negative Urine Occult Blood 3+ H Urine Nitrate Negative Urine Bilirubin Negative Urine Urobilinogen 0.2 Ur Leukocyte Esterase 1+ H Urine RBC 5-10/hpf H Urine WBC 10-30/hpf H Ur Squamous Epith Cells 5-10 /hpf H Urine Bacteria Many (>30) H Ur Culture Indicated? Cult not indicated Micro UA Comment Blood Type 09/07/20 09/07/20 09/07/20 13:25 13:25 13:25 WBC 6.1 RBC 3.88 L Hgb 12.0 Hct 35.0 L MCV 90.2 MCH 31.0 MCHC 34.3 RDW 13.3 Plt Count 198 Neut % (Auto) 79.0 H Lymph % (Auto) 12.8 L [place] % (Auto) 7.1 Eos % (Auto) 0.7 L Baso % (Auto) 0.4 Neut # (Auto) 4800 Lymph # (Auto) 800 L [place] # (Auto) 400 Eos # (Auto) 0 Baso # (Auto) 0 PT INR APTT Sodium 138 Potassium 3.8 Chloride 105 Carbon Dioxide 28 BUN 7 Creatinine 0.58 Estimated GFR > 60.0 BUN/Creatinine Ratio 12.1 Glucose 94 Calcium 8.8 Total Bilirubin 0.6 AST 25 ALT 14 Alkaline Phosphatase 69 Total Protein 7.2 Albumin 4.1 Globulin 3.1 Albumin/Globulin Ratio 1.3 HCG, Quant Urine Color Urine Appearance Urine pH Ur Specific [place] Urine Protein Urine Glucose (UA) Urine Ketones Urine Occult Blood Urine Nitrate Urine Bilirubin Urine Urobilinogen Ur Leukocyte Esterase Urine RBC Urine WBC Ur Squamous Epith Cells Urine Bacteria Ur Culture Indicated? Micro UA Comment Blood Type O Positive Assessment & Plan Assessment and plan (1) Retained products of conception: Status: Acute Assessment & Plan narrative: Patient with retained products of conception but otherwise stable. She requests repeating Cytotec rather than proceeding with D&C.
== END 2020-09-07 16:01 | disposition home or self-care (01) ==
PROVIDERS: Emergency Provider Emergency Medicine; PCP Nurse Practitioner Family
DX: O02.1 Missed abortion (principal)
CPT/HCPCS: 36415; 76830; 76856; 80053; 81001; 84702; 85025; 85610; 85730; 86900; 86901; 96374; 99284; J1885